=== PATIENT | female | born 1945 | race Caucasian/White ===

== ENCOUNTER 2018-05-28 10:55 | Inpatient (IN) ==
--- NOTE | 2018-05-28 11:04 | Emergency Department Note ---
Disposition Clinical Impression: Pneumonia, Hyponatremia Disposition: Admitted As Inpatient Condition: Fair General Adult HPI - General Chief complaint: ED General Medical Stated complaint: abnormal labs, low na Time Seen by Provider: 05/28/18 10:55 Source: patient Mode of arrival: EMS Limitations: no limitations Nursing Notes Reviewed: Yes Vital Signs Reviewed: Yes - History of Present Illness HPI Narrative: Patient presents by EMS from the [facility]. EMS gave us a report that the patient has a low sodium. We did not receive a report from the [facility]. The patient denies any complaints. She says she feels fine. She denies any weakness chest pain shortness of breath nausea vomiting or other complaints. Onset (ago): day(s) (1) Location: other (Abnormal laboratory test) Pain Scale: 0 Consistency: constant Improves with: nothing Worsens with: nothing Associated symptoms: Reports: denies other symptoms Treatments Prior to Arrival: none - Related Data Home Medications Medication Instructions Recorded Confirmed Aspirin [Lo-Dose Aspirin EC] 81 mg PO DAILY 05/28/18 05/28/18 Benzonatate [Tessalon] 100 mg PO Q8-10H PRN 05/28/18 05/28/18 Donepezil HCl [Aricept] 5 mg PO HS 05/28/18 05/28/18 LORazepam [Ativan] 0.5 mg PO BID 05/28/18 05/28/18 Lisinopril-HCTZ 20-12.5 [Prinzide 1 each PO DAILY 05/28/18 05/28/18 20-12.5] Loratadine [Claritin] 10 mg PO DAILY 05/28/18 05/28/18 Rosuvastatin [Crestor] 20 mg PO HS 05/28/18 05/28/18 Allergies Allergy/AdvReac Type Severity Reaction Status Date / Time Penicillins Allergy Rash Verified 05/28/18 10:57 All systems ED: reviewed and negative except as stated. Review of Systems: As Per HPI Constitutional: Denies: fever, chills, weakness, weight change Eyes: Denies: eye pain, eye discharge, vision change ENT ED: Denies: ear pain, throat pain, dental pain, hearing loss, epistaxis, congestion, dysphagia Cardiovascular: Denies: chest pain, palpitations, dyspnea on exertion, edema, syncope Respiratory: Reports: as per HPI Gastrointestinal: Denies: abdominal pain, nausea, vomiting, diarrhea, constipation, hematemesis, melena, hematochezia Genitourinary: Denies: dysuria, frequency, hematuria, discharge Musculoskeletal: Denies: back pain, neck pain, arthralgia, myalgia Integumentary: Denies: rash, abrasion, lesions Neurological: Denies: headache, weakness, numbness, paresthesias, confusion, abnormal gait, vertigo Psychiatric: Denies: anxiety, depression, suicidal thoughts, homicidal thoughts, auditory hallucinations, visual hallucinations Endocrine: Denies: fatigue Hematological/Lymphatic: Denies: easy bleeding, easy bruising Allergic/Immunologic: Denies: facial swelling, urticaria Past Medical History - Past Medical History Attestation: Yes The following information was validated with the patient. Source: patient, nursing notes reviewed Medical history: Reports: other Psychiatric history: Reports: anxiety, depression - Social History Smoking Status: Never smoker Smokeless Tobacco Status: No Alcohol use: Reports: none Drug use: Reports: none Physical Exam - General Limitations: no limitations General appearance: alert, in no apparent distress - Head Head exam: atraumatic, normocephalic, normal inspection - Eye Eye exam: Present: normal appearance, PERRL, EOMI - ENT ENT exam: normal exam, normal oropharynx, mucous membranes moist - Neck Neck exam: Present: normal inspection, full ROM, trachea midline - Chest Chest inspection: Present: normal inspection, symmetric chest wall rise - Respiratory Respiratory exam: Present: normal lung sounds bilaterally, other (Cough nonproductive noted during the exam). Absent: respiratory distress, wheezes - Cardiovascular Cardiovascular exam: Present: regular rate, normal rhythm, normal heart sounds - Abdominal Exam Abdominal exam: Present: soft, Non-Tender. Absent: tenderness, distention, guarding, rebound, rigidity - Extremities Exam Extremities exam: Present: normal inspection, full ROM. Absent: tenderness, pedal edema - Back Exam Back exam: Present: normal inspection, full ROM. Absent: tenderness - Neurological Exam Neurological exam: Present: alert - Psychiatric Psychiatric exam: Present: normal affect, normal mood - Skin Skin exam: Present: warm, dry, intact, normal color Medical Decision Making - MDM Narrative Medical decision making narrative: I reviewed the patient's medication list Case was discussed with Dr. Dunn who is graciously accepted admission to the hospital - Lab Data Lab results reviewed: Yes I reviewed the patient's lab results. - Radiology Data Radiology results reviewed: Yes I reviewed the patient's radiology results. - EKG Data EKG #1 EKG attestation: Yes I reviewed and interpreted this EKG. EKG results narrative: EKG shows heart rate 91 bpm normal sinus rhythm NH interval is 186 ms. QRS duration 73 ms. QT interval 354 and QTC 436 ms. R axis of -[address] elevation.
[2018-05-28 11:26] LABS: Basophils % 0.2 %; Eosinophils # 0.1 K/mcL (0.0-0.6); Eosinophils % 0.8 %; Hematocrit 34.3 % (35.3-44.9); Hemoglobin 12.3 g/dL (11.5-15.4); Immature Granulocytes % 0.4 % (0-4); Lymphocytes # 1.4 K/mcL (0.6-4.6); Lymphocytes % 12.9 %; Mean Corpuscular HGB Conc 35.9 g/dL (31.6-35.5); Mean Corpuscular Hemoglobin 29.6 pg (28.0-33.3); Mean Corpuscular Volume 82.7 fL (83.0-100.0); Mean Platelet Volume 9.1 fL (9.4-12.4); Monocytes # 0.9 K/mcL (0.0-1.3); Monocytes % 8.1 %; Neutrophils # 8.4 K/mcL (1.6-8.9); Platelet Count 411 K/mcL (140-400); Red Blood Count 4.15 M/mcL (3.82-4.97); Red Cell Distribution Width 11.9 % (11.5-14.5); Segmented Neutrophils % 77.6 %
[2018-05-28 11:45] LABS: Alanine Aminotransferase 9 Units/L (7-52); Albumin 3.7 g/dL (3.5-5.7); Albumin/Globulin Ratio 1.2 (1.1-2.2); Alkaline Phosphatase 81 Units/L (34-104); Aspartate Amino Transferase 11 Units/L (13-39); BUN/Creatinine Ratio 9 (6-26); Bilirubin,Total 0.7 mg/dL (0.3-1.0); Blood Urea Nitrogen 9 mg/dL (8-23); Calcium 9.3 mg/dL (8.6-10.3); Carbon Dioxide 29 mEq/L (23-29); Chloride 82 mEq/L (98-107); Glucose 106 mg/dL (70-105); Osmolality,Calculated 247 (280-300); Potassium 3.8 mEq/L (3.5-5.1); Sodium 119 mEq/L (136-145); Total Protein 6.7 g/dL (6.4-8.9); eGFR For Non-African Americans 56 (> 60)
[2018-05-28] MEDS ORDERED: Levofloxacin 750 MG/150 ML 750 MG/150 ML BAG IVPB ONE (11:55)
[2018-05-28] MEDS ORDERED: 0.9 % Sodium Chloride 1,000 ML IVC SCH (12:00)
[2018-05-28 12:12] LABS: Bilirubin,Urine Negative (Negative); Blood,Urine Negative (Negative); Clarity,Urine Clear (Clear); Glucose,Urine (UA) Normal (Normal); Ketones,Urine Negative (Negative); Leukocyte Esterase,Urine Negative (Negative); Nitrite,Urine Negative (Negative); Protein,Urine Negative (Neg-Trace); Urobilinogen,Urine Normal (Normal)
[2018-05-28 12:18] LABS: Color,Urine Light Yellow (Yellow)
[2018-05-28] MEDS ORDERED: Naloxone 0.4 MG/ML INJ IVP PRN (13:47)
--- NOTE | 2018-05-28 15:31 | Internal Med History&Physical ---
Date of Encounter: 05/28/18 Time of Encounter: 15:00 Assessment and Plan (1) Pneumonia Current visit: Yes Status: Acute She was started on IV Levaquin in emergency room. This will be continued with addition of lactobacillus. 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 Normal saline IV fluids have been started. Antibiotics will be ordered for pneumonia and further workup as needed. (3) Hypertension Current visit: Yes Status: Chronic Hold lisinopril/HCTZ and monitor blood pressure. Qualifiers: Hypertension type: essential hypertension Qualified Code(s): I10 - Essential (primary) hypertension (4) Microcytosis Current visit: Yes Status: Chronic Iron studies will be drawn in a.m. Internal Medicine - H&P: HPI Chief complaint: Pneumonia, hyponatremia Admitted From: Emergency Dept Plans for Post Hospital Care: Home History of present illness: Ms. Isaacs is a 72 year old female who was sent to emergency room from a local SNF after she was noted to have hyponatremia on blood work with sodium level of 119. She was evaluated in emergency room with repeat labs confirming sodium 119. She was confused. She was admitted to [facility] floor for ongoing care needs. Review of archived labs show sodium normal at 137 on 11/19/2017. She reports she has been on lisinopril/HCTZ for 2 years or longer. She denies any change in her prescription medications and does not use OTC medications. Past Med Surg Social Fam HX - Past Medical History Medical history: dementia, other Additional medical history: nontraumatic subdural hemorrhage Psychiatric history: anxiety, depression - Social History Smoking Status: Never smoker Smokeless Tobacco Status: No Alcohol use: none Drug use: none Internal Medicine - H&P: Meds Aspirin [Lo-Dose Aspirin EC] 81 mg PO DAILY 05/28/18 [History] Benzonatate [Tessalon] 100 mg PO Q8-10H PRN 05/28/18 [History] Donepezil HCl [Aricept] 5 mg PO HS 05/28/18 [History] LORazepam [Ativan] 0.5 mg PO BID 05/28/18 [History] Lisinopril-HCTZ 20-12.5 [Prinzide 20-12.5] 1 each PO DAILY 05/28/18 [History] Loratadine [Claritin] 10 mg PO DAILY 05/28/18 [History] Rosuvastatin [Crestor] 20 mg PO HS 05/28/18 [History] Allergy/AdvReac Type Severity Reaction Status Date / Time Penicillins Allergy Rash Verified 05/28/18 10:57 All Systems PM: A 10-system review of systems was performed and is negative for pertinent findings except as documented above in the HPI. Review of systems: Gen.: She states her weight has been stable the past year Cardiovascular: She has history of hypertension but denies TN heart failure den na DVT or pulmonary embolus Respiratory: She is a lifelong nonsmoker and reports no chronic lung disease. GI: She denies disorders of her liver gallbladder or exocrine pancreas : She denies hematuria dysuria or kidney stones Neurologic: She denies large distribution strokes or seizures. Endocrine: She has hyperlipidemia but denies diabetes or thyroid disease Hematology/oncology: She denies blood disorders cancers or anemia. Psychiatric: She feels depressed stating her a few weeks ago. She denies anxiety or other mental health diagnoses Musk skeletal: She denies arthritis gout or other bone joint or muscle disorders. - Constitutional Vitals: Temp Pulse Resp BP Pulse Ox 97.4 F L 95 18 130/63 98 05/28/18 10:58 05/28/18 12:31 05/28/18 12:31 05/28/18 12:31 05/28/18 12:31 Exam: Gen.: She is a well-developed well-nourished female sitting in a chair at bedside who appears in no acute distress HEENT: Head is atraumatic and normocephalic. Eyes: EOMI. There is no scleral icterus. Mouth: Mucosa is moist. Neck: Supple and nontender. There is no thyromegaly or adenopathy noted. Heart: Regular without murmurs gallops or ectopics Lungs: No wheezes or crackles are heard. Abdomen: Soft and nontender. No masses or guarding are noted. Exam is limited because she is in the seated position. Extremities: There is no cyanosis edema or clubbing noted. Dorsalis pedis and posttibial pulses are trace palpable bilaterally. Her feet are warm to touch. Neurologic: Mental status: She is talkative and seems to be a fair to good historian. She does remember some details of her history. She is able to do simple money math. Cranial nerves: Smile is symmetric. Forehead reveals bilaterally. Tongue protrudes midline. EOMI. Motor: There is no pronator drift. Cerebellar: Finger to nose is intact bilaterally. Skin: Warm and dry Internal Med - H&P Results - Labs CBC & Chem 7: 05/28/18 11:21 05/28/18 11:21 Labs: Short CBC 05/28/18 Range/Units 11:21 WBC 10.8 (4.3-11.1) K/mcL Hgb 12.3 (11.5-15.4) g/dL Hct 34.3 L (35.3-44.9) % Plt Count 411 H (140-400) K/mcL Neutrophils # 8.4 (1.6-8.9) K/mcL BMP 05/28/18 11:21 Sodium 119 L* Potassium 3.8 Chloride 82 L Carbon Dioxide 29 BUN 9 Creatinine 0.98 Glucose 106 H Calcium 9.3 Liver Function 05/28/18 Range/Units 11:21 Total Bilirubin 0.7 (0.3-1.0) mg/dL AST 11 L (13-39) Units/L ALT 9 (7-52) Units/L Alkaline Phosphatase 81 (34-104) Units/L Albumin 3.7 (3.5-5.7) g/dL Urine 05/28/18 Range/Units 12:00 Urine Color Light Yellow (Yellow) Urine Clarity Clear (Clear) Urine pH 7.0 (5.0-8.0) pH Units Ur Specific [place] 1.010 (1.010-1.025) Urine Protein Negative (Neg-Trace) mg/dL Urine Glucose (UA) Normal (Normal) mg/dL - Impressions ITS Impressions Chest X-Ray 05/28/18 11:04 IMPRESSION: 1. Right basilar pneumonia. Recommend chest radiograph in 8 weeks to confirm resolution. D/ / Gus Mendez MD / Gus Mendez MD Interpreting Provider: Gus Mendez MD
[2018-05-28] MEDS ORDERED: *HR* LORazepam 0.5 MG TABLET PO SCH (21:00)
[2018-05-28] MEDS: 0.9 % Sodium Chloride 1,000 ML IVC SCH ×2 (21:24→22:10)
[2018-05-28] MEDS: *HR* LORazepam 0.5 MG TABLET PO PRN (22:08)
[2018-05-28] MEDS: Benzonatate 100 MG CAPSULE PO PRN (23:34)
[2018-05-29] MEDS: 0.9 % Sodium Chloride 1,000 ML IVC SCH ×3 (06:19→23:01)
[2018-05-29 08:26] LABS: Basophils % 0.2 %; Eosinophils # 0.1 K/mcL (0.0-0.6); Hemoglobin 11.9 g/dL (11.5-15.4); Immature Granulocytes % 0.2 % (0-4); Lymphocytes # 1.8 K/mcL (0.6-4.6); Mean Corpuscular Hemoglobin 29.5 pg (28.0-33.3); Mean Corpuscular Volume 84.4 fL (83.0-100.0); Mean Platelet Volume 9.3 fL (9.4-12.4); Monocytes # 0.7 K/mcL (0.0-1.3); Monocytes % 8.2 %; Neutrophils # 5.6 K/mcL (1.6-8.9); Platelet Count 392 K/mcL (140-400); Red Blood Count 4.03 M/mcL (3.82-4.97); Red Cell Distribution Width 12.1 % (11.5-14.5); Segmented Neutrophils % 68.4 %
[2018-05-29 08:35] LABS: VBG Chloride 95 mEq/L (98-107); VBG Creatinine 1.03 mg/dL (0.57-1.11); VBG Glucose 110 mg/dl (65-95)
[2018-05-29] MEDS ORDERED: Loratadine 10 MG TABLET PO SCH (09:00)
[2018-05-29] MEDS ORDERED: Lisinopril 20 MG TABLET PO SCH (09:00)
[2018-05-29] MEDS ORDERED: hydroCHLOROthiazide 25 MG TABLET PO SCH (09:00)
--- NOTE | 2018-05-29 09:44 | Internal Med Progress Note ---
Date of Encounter: 05/29/18 Time of Encounter: 09:35 - Assessment and plan (1) Pneumonia Current Visit: Yes Status: Acute Assessment and plan: May 29. Continue Levaquin and lactobacillus. Qualifiers: Pneumonia type: due to unspecified organism Laterality: right Lung location: lower lobe of lung Qualified Code(s): J18.1 - Lobar pneumonia, unspecified organism (2) Hyponatremia Current Visit: Yes Status: Acute Assessment and plan: May 29. Sodium has risen to 130. Continue normal saline IV. (3) Hypertension Current Visit: Yes Status: Chronic Assessment and plan: May 29. Remain off lisinopril/HCTZ. Qualifiers: Hypertension type: essential hypertension Qualified Code(s): I10 - Essential (primary) hypertension (4) Microcytosis Current Visit: Yes Status: Chronic Assessment and plan: May 29. Order iron profile. - Subjective Interval history: May 29. No new problems have arisen. She has no new complaints. - Constitutional Vitals: Temp Pulse Resp BP Pulse Ox 97.8 F 109 18 119/64 98 05/28/18 18:28 05/28/18 18:28 05/28/18 18:28 05/28/18 18:28 05/28/18 18:28 Exam: She is resting comfortably in bed and appears in no acute distress. Her affect is bright and cheerful. I reviewed her medications and lab results. Internal Medicine: Result - Labs CBC & Chem 7: 05/29/18 08:16 05/28/18 11:21 Labs: Short CBC 05/28/18 05/29/18 Range/Units 11:21 08:16 WBC 10.8 8.2 (4.3-11.1) K/mcL Hgb 12.3 11.9 (11.5-15.4) g/dL Hct 34.3 L 34.0 L (35.3-44.9) % Plt Count 411 H 392 (140-400) K/mcL Neutrophils # 8.4 5.6 (1.6-8.9) K/mcL BMP 05/28/18 11:21 Sodium 119 L* Potassium 3.8 Chloride 82 L Carbon Dioxide 29 BUN 9 Creatinine 0.98 Glucose 106 H Calcium 9.3 Liver Function 05/28/18 Range/Units 11:21 Total Bilirubin 0.7 (0.3-1.0) mg/dL AST 11 L (13-39) Units/L ALT 9 (7-52) Units/L Alkaline Phosphatase 81 (34-104) Units/L Albumin 3.7 (3.5-5.7) g/dL Urine 05/28/18 Range/Units 12:00 Urine Color Light Yellow (Yellow) Urine Clarity Clear (Clear) Urine pH 7.0 (5.0-8.0) pH Units Ur Specific [place] 1.010 (1.010-1.025) Urine Protein Negative (Neg-Trace) mg/dL Urine Glucose (UA) Normal (Normal) mg/dL - Impressions Impressions Chest X-Ray 05/28/18 11:04 IMPRESSION: 1. Right basilar pneumonia. Recommend chest radiograph in 8 weeks to confirm resolution. D/ / Gus Mendez MD / Gus Mendez MD Interpreting Provider: Gus Mendez MD Consult Discharge Plan - Plan Referrals: Alexander Holland MD [Primary Care Provider] - 1 week
[2018-05-29] MEDS: Aspirin Enteric Coated 81 MG Tablet PO SCH (10:54)
[2018-05-29 11:18] LABS: BUN/Creatinine Ratio 9 (6-26); Blood Urea Nitrogen 9 mg/dL (8-23); Calcium 9.1 mg/dL (8.6-10.3); Carbon Dioxide 28 mEq/L (23-29); Chloride 95 mEq/L (98-107); Glucose 111 mg/dL (70-105); Osmolality,Calculated 269 (280-300); Potassium 3.9 mEq/L (3.5-5.1); Sodium 130 mEq/L (136-145); eGFR For Non-African Americans 52 (> 60)
[2018-05-29] MEDS ORDERED: Acetaminophen 325 MG TABLET PO PRN (20:24)
--- NOTE | 2018-05-29 21:01 | Electrocardiograph Report ---
[place] [id number] Test Date: 2018-05-28 Pat Name: Ayala Isaacs Department: EDP-14 Room: [facility] Gender: F [employer]: : 1945 Requested By: Jimmy Call Order Number: [id number] Reading MD: Anna Barros Measurements Intervals [place] Rate: 91 P: 72 WV: 186 QRS: -26 QRSD: 73 T: 73 QT: 354 QTc: 436 Interpretive Statements Sinus rhythm Borderline left axis deviation Anteroseptal infarct, old Electronically Signed On 05-29-2018 21:00:11 EST by Anna Barros
[2018-05-29] MEDS: *HR* LORazepam 0.5 MG TABLET PO PRN (22:59)
[2018-05-29] MEDS: Benzonatate 100 MG CAPSULE PO PRN (22:59)
[2018-05-30 05:50] LABS: Basophils % 0.3 %; Eosinophils # 0.1 K/mcL (0.0-0.6); Eosinophils % 1.9 %; Hematocrit 32.3 % (35.3-44.9); Hemoglobin 10.9 g/dL (11.5-15.4); Immature Granulocytes % 0.1 % (0-4); Lymphocytes # 2.6 K/mcL (0.6-4.6); Lymphocytes % 36.6 %; Mean Corpuscular HGB Conc 33.7 g/dL (31.6-35.5); Mean Corpuscular Hemoglobin 29.3 pg (28.0-33.3); Mean Corpuscular Volume 86.8 fL (83.0-100.0); Mean Platelet Volume 9.3 fL (9.4-12.4); Monocytes # 0.7 K/mcL (0.0-1.3); Monocytes % 9.4 %; Neutrophils # 3.6 K/mcL (1.6-8.9); Platelet Count 409 K/mcL (140-400); Red Blood Count 3.72 M/mcL (3.82-4.97); Red Cell Distribution Width 12.2 % (11.5-14.5); Segmented Neutrophils % 51.7 %
[2018-05-30] MEDS: 0.9 % Sodium Chloride 1,000 ML IVC SCH (06:00)
[2018-05-30 06:14] LABS: BUN/Creatinine Ratio 18 (6-26); Blood Urea Nitrogen 16 mg/dL (8-23); Calcium 8.9 mg/dL (8.6-10.3); Carbon Dioxide 26 mEq/L (23-29); Chloride 99 mEq/L (98-107); Glucose 97 mg/dL (70-105); Magnesium 1.9 mg/dL (1.6-2.6); Osmolality,Calculated 273 (280-300); Potassium 3.7 mEq/L (3.5-5.1); Sodium 131 mEq/L (136-145); eGFR For Non-African Americans > 60 (> 60)
[2018-05-30 07:08] VITALS: BP 130/64
[2018-05-30] MEDS: Aspirin Enteric Coated 81 MG Tablet PO SCH (09:13)
--- NOTE | 2018-05-30 09:54 | Discharge Summary ---
Orders not resulted at time of discharge: Pending orders 05/28/18 12:15 Culture,Blood [BC] Stat 05/28/18 12:19 Urine Sodium 24 Hr [UCHEM] Stat 05/30/18 05:31 Basic Metabolic Panel AM 0400 Ferritin AM 0400 Iron Profile AM 0400 Magnesium AM 0400 Date of Encounter: 05/30/18 Time of Encounter: 09:45 - Discharge Diagnosis (1) Pneumonia Priority: Primary Status: Acute Qualifiers: Pneumonia type: due to unspecified organism Laterality: right Lung location: lower lobe of lung Qualified Code(s): J18.1 - Lobar pneumonia, unspecified organism (2) Hyponatremia Priority: Secondary Status: Acute (3) Hypertension Priority: Secondary Status: Chronic Qualifiers: Hypertension type: essential hypertension Qualified Code(s): I10 - Essential (primary) hypertension (4) Microcytosis Priority: Secondary Status: Chronic Hospital course: Ms. Isaacs is a 72 year old female who was sent to emergency room from a local [facility] after she was noted to have hyponatremia on blood work with sodium level of 119. She was evaluated in emergency room with repeat labs confirming sodium 119. She was confused. She was admitted to [facility] floor for ongoing care needs. Initial orders were written by the emergency room physician. I saw her on May 28 and performed the history and physical. She was started on IV Levaquin in emergency room. She remained clinically stable and afebrile during her hospital stay. She will continue with antibiotic and probiotic for 3 additional days at discharge. IV normal saline was started and sodium level aimee to 131 by day of discharge. Her mental status did not change with baseline confusion persisting consistent with diagnosis of dementia. Her PCP can monitor labs. Lisinopril/HCTZ was held at discharge because of hyponatremia. Her blood pressure remained well-controlled off medication and it will not be restarted at discharge. Sodium level improved to 131 by day of discharge. Hemoglobin decreased to 10.9 on day of discharge. Iron profile and ferritin were pending at time of discharge. She had microcytosis present on initial CBC. Microcytosis resolved by time of discharge. Her PCP can follow up on the iron profile and ferritin. She will be discharged to [facility] and follow with Dr. Holland. - Time Spent with Patient Total time spent providing and/or coordinating discharge services: - Discharge Medications Prescriptions: Lactobacillus [Culturelle] 1 each PO BID 3 Days cap.sprink levoFLOXacin [Levaquin] 750 mg PO DAILY 3 Days tablet Home Medications: Aspirin [Lo-Dose Aspirin EC] 81 mg PO DAILY 05/28/18 [History] Benzonatate [Tessalon] 100 mg PO Q8-10H PRN 05/28/18 [History] Donepezil HCl [Aricept] 5 mg PO HS 05/28/18 [History] LORazepam [Ativan] 0.5 mg PO BID 05/28/18 [History] Loratadine [Claritin] 10 mg PO DAILY 05/28/18 [History] Rosuvastatin [Crestor] 20 mg PO HS 05/28/18 [History] Lactobacillus [Culturelle] 1 each PO BID 3 Days cap.sprink 05/30/18 [Rx] levoFLOXacin [Levaquin] 750 mg PO DAILY 3 Days tablet 05/30/18 [Rx] Allergies/Adverse Reactions: Allergy/AdvReac Type Severity Reaction Status Date / Time Penicillins Allergy Rash Verified 05/28/18 10:57 Date of admission: 05/28/18 18:13 Primary care physician: Alexander Holland MD Consults: 05/28/18 14:20 Consult to Lead I[employer] Developer [CONS] Routine Reason for SW Consult: discharge planning back to [facility] - Constitutional Vitals: Temp Pulse Resp BP Pulse Ox 97.4 F L 77 16 130/64 98 05/30/18 07:07 05/30/18 07:07 05/30/18 07:07 05/30/18 07:07 05/30/18 07:07 - Patient Status Disposition: Transfer SNF Condition: Fair - Discharge Instructions Follow Up With: Alexander Holland MD [Primary Care Provider] - 1 week - Diet and Activity Activity: resume usual activities as tolerated Diet: advance to your usual diet
--- NOTE | 2018-05-30 10:04 | Physician Discharge Referral ---
ExtendedCare Referral Info Transfer To: [facility] Provider in Charge: Shaun Provider in Charge after Transfer: PCP (Skyler) - Diagnosis (1) Pneumonia Priority: Primary Status: Acute (2) Hyponatremia Priority: Secondary Status: Acute (3) Hypertension Priority: Secondary Status: Chronic (4) Microcytosis Priority: Secondary Status: Chronic - Transfer Medications Prescriptions: Lactobacillus [Culturelle] 1 each PO BID 3 Days cap.sprink levoFLOXacin [Levaquin] 750 mg PO DAILY 3 Days tablet Home Medications: Aspirin [Lo-Dose Aspirin EC] 81 mg PO DAILY 05/28/18 [History] Benzonatate [Tessalon] 100 mg PO Q8-10H PRN 05/28/18 [History] Donepezil HCl [Aricept] 5 mg PO HS 05/28/18 [History] LORazepam [Ativan] 0.5 mg PO BID 05/28/18 [History] Loratadine [Claritin] 10 mg PO DAILY 05/28/18 [History] Rosuvastatin [Crestor] 20 mg PO HS 05/28/18 [History] Lactobacillus [Culturelle] 1 each PO BID 3 Days cap.sprink 05/30/18 [Rx] levoFLOXacin [Levaquin] 750 mg PO DAILY 3 Days tablet 05/30/18 [Rx] Allergies/Adverse Reactions: Allergy/AdvReac Type Severity Reaction Status Date / Time Penicillins Allergy Rash Verified 05/28/18 10:57 - Respiratory Orders Smoking Cessation: Smoking cessation has been advised. For more information, call the [place] Tobacco Quit Line at 9-183-WYFI-NOW. - Mobility Orders Ambulate - Rehabiliation Orders Rehab Potential: Fair - Diet Orders Regular CERTIFICATION: I certify that the transfer of the above named patient to an Extended Care Facility is necessary for the continuing treatment of the diagnosis listed. The above information is true and accurate reflection of patient's current condition. Confidential - Redisclosure prohibited without a patient's written consent.
[2018-05-30 10:14] LABS: % Iron Saturation 13 % (15-50); Iron 44 mcg/dL (50-170); Transferrin 235 mg/dL (203-362)
[2018-05-30 10:32] LABS: Ferritin 118 ng/mL (10-120)
[2018-05-30 16:37] LABS: Total Volume 24 Hour,Urine 2.51 Liters (0.60-1.60)
[2018-05-30 16:54] LABS: Sodium, Urine 34.5 mEq/L
== END 2018-05-30 11:35 | DRG 194 ==
LOC: EMEROOPIK 10:55 → INPPIK 10:55
PROVIDERS: ADMIT Internal Medicine; ATTEND Internal Medicine